=== PATIENT | male | born 1965 | race African-American/Black ===

== ENCOUNTER 2020-11-30 12:13 | Inpatient (IN) | payer SELFPAY ==
[~2020-11-30] VITALS: Ht 167.6 cm; Wt 42.2 kg
[2020-11-30] MEDS ORDERED: SODIUM CHLORIDE 0.9% 1000ML BAG (SEPSIS BOLUS) IV ONE (12:30)
[2020-11-30 12:54] LABS: BG BASE EXCESS -11.4 mmol/L (-2.0-2.0); BG CARBOXYHEMOGLOBIN 0.3 % (0.5-1.5); BG DEOXYHEMOGLOBIN 4.3 % (0.0-5.0); BG FRACTION INSPIRED OXYGEN 21; BG HCO3 ACT 12.8 mmol/L (22.0-26.0); BG METHEMOGLOBIN 0.4 % (0.0-1.5); BG OXYGEN SATURATION 95.7 % (92.0-98.5); BG PCO2 25.9 mmHg (35.0-45.0); BG PH 7.311 (7.350-7.450); BG PO2 94.1 mmHg (75.0-100.0); BG SAMPLE SITE RIGHT BRACHIAL; BG TOTAL HEMOGLOBIN 16.8 g/dL (12.0-18.0); BG VENT MODE ROOM AIR
[2020-11-30 14:00] LABS: HEMATOCRIT. 48.7 % (42.0-52.0); HEMOGLOBIN. 16.3 g/dL (14.0-18.0); MEAN CORPUSCULAR HEMOGLOBIN 30.4 pg (28.0-32.0); MEAN CORPUSCULAR VOLUME 91.1 fL (80.0-94.0); MEAN PLATELET VOLUME 9.1 fl (7.4-10.4); PLATELET 273 x1000/uL (130-400); RED BLOOD CELL COUNT 5.35 mill/uL (4.7-6.1); RED CELL DISTRIBUTION WIDTH 13.7 % (11.6-14.6)
[2020-11-30 14:01] LABS: CHLORIDE 101 mEq/L (98-107)
[2020-11-30 14:03] LABS: INR 1.2; PROTHROMBIN TIME 12.6 sec (9.6-11.0)
[2020-11-30 14:07] LABS: ETHANOL BLOOD < 10 mg/dL
[2020-11-30 14:09] LABS: C REACTIVE PROTEIN QUANT 6.4 mg/L (0.0-3.0)
[2020-11-30 14:25] LABS: CREATINE KINASE 5134 IU/L (39-308)
[2020-11-30] MEDS ORDERED: VANCOMYCIN 1 G PREMIX 200 ML IV SCH (14:30)
[2020-11-30] MEDS ORDERED: PIPERACILLIN/TAZOBACTAM 3.375GM/50ML PREMIX IV ONE (14:30)
[2020-11-30 14:45] LABS: CLARITY URINE CLOUDY (CLEAR); COLOR URINE YELLOW (YELLOW); KETONES URINE TRACE (NEGATIVE); LEUKOCYTE ESTERASE URINE 2+ (NEGATIVE); NITRITE URINE POSITIVE (NEGATIVE); OCCULT BLOOD URINE 3+ (NEGATIVE); PROTEIN URINE 2+ (NEGATIVE); SPECIFIC GRAVITY URINE 1.015 (1.005-1.030)
[2020-11-30 14:54] LABS: PLATELET ESTIMATE NORMAL
[2020-11-30 15:04] LABS: *AMPHETAMINES SCREEN URINE NEGATIVE (NEGATIVE); CANNABINOID URINE SCREEN NEGATIVE (NEGATIVE)
[2020-11-30 15:05] LABS: *BARBITURATES SCREEN URINE NEGATIVE (NEGATIVE); *BENZODIAZEPINES SCREEN URINE NEGATIVE (NEGATIVE); *COCAINE SCREEN URINE NEGATIVE (NEGATIVE); METHADONE URINE SCREEN NEGATIVE (NEGATIVE); OPIATES URINE SCREEN NEGATIVE (NEGATIVE); PHENCYCLIDINE URINE SCREEN NEGATIVE (NEGATIVE)
[2020-11-30] MEDS ORDERED: SODIUM CHLORIDE 0.9% 1,000 ML IV PRN (16:00)
[2020-11-30 18:13] LABS: BG BASE EXCESS -9.7 mmol/L (-2.0-2.0); BG CARBOXYHEMOGLOBIN 0.1 % (0.5-1.5); BG DEOXYHEMOGLOBIN 4.8 % (0.0-5.0); BG FRACTION INSPIRED OXYGEN 21; BG HCO3 ACT 15.1 mmol/L (22.0-26.0); BG METHEMOGLOBIN 0.3 % (0.0-1.5); BG OXYGEN SATURATION 95.2 % (92.0-98.5); BG OXYHEMOGLOBIN 94.8 % (94.0-97.0); BG PCO2 30.8 mmHg (35.0-45.0); BG PH 7.308 (7.350-7.450); BG PO2 87.1 mmHg (75.0-100.0); BG SAMPLE SITE RIGHT BRACHIAL; BG TOTAL HEMOGLOBIN 16.3 g/dL (12.0-18.0); BG VENT MODE ROOM AIR
[2020-11-30 19:36] LABS: CHLORIDE 110 mEq/L (98-107)
[2020-11-30] MEDS ORDERED: SODIUM CHLORIDE 0.9% 1,000 ML IV SCH (20:15)
[2020-11-30 20:20] LABS: CREATINE KINASE 6854 IU/L (39-308)
[2020-11-30] MEDS: LORAZEPAM 2MG/ML CPJ IV PRN (20:23)
[2020-11-30] MEDS: NICOTINE 14MG PATCH TD SCH (20:23)
[2020-11-30] MEDS ORDERED: PIPERACILLIN/TAZOBACTAM 3.375GM/50ML PREMIX IV SCH (20:30)
[2020-11-30 21:03] VITALS: BP 132/79
[2020-11-30] MEDS: PIPERACILLIN/TAZOBACTAM 2.25G in DEXTROSE 5% WATER 50ML IV SCH (22:57)
[2020-12-01] VITALS: BP 96/59
[2020-12-01] MEDS ORDERED: VANCOMYCIN 1 G PREMIX 200 ML IV SCH ×2 (02:30→17:00)
[2020-12-01 04:00] VITALS: BP 111/83
[2020-12-01] MEDS: PIPERACILLIN/TAZOBACTAM 2.25G in DEXTROSE 5% WATER 50ML IV SCH ×3 (05:29→21:51)
[2020-12-01 06:24] LABS: HEMATOCRIT. 50.7 % (42.0-52.0); HEMOGLOBIN. 16.7 g/dL (14.0-18.0); MEAN CORPUSCULAR HEMOGLOBIN 30.4 pg (28.0-32.0); MEAN CORPUSCULAR VOLUME 92.1 fL (80.0-94.0); MEAN PLATELET VOLUME 9.3 fl (7.4-10.4); PLATELET 214 x1000/uL (130-400)
[2020-12-01 06:53] LABS: CHLORIDE 117 mEq/L (98-107)
[2020-12-01 06:59] LABS: PHOSPHORUS 7.2 mg/dL (2.5-4.9)
[2020-12-01 07:17] LABS: CREATINE KINASE 6421 IU/L (39-308)
[2020-12-01 08:00] VITALS: BP 116/78
[2020-12-01] MEDS: NICOTINE 14MG PATCH TD SCH (09:41)
[2020-12-01 10:26] LABS: BG BASE EXCESS -7.4 mmol/L (-2.0-2.0); BG CARBOXYHEMOGLOBIN 0.3 % (0.5-1.5); BG DEOXYHEMOGLOBIN 5.7 % (0.0-5.0); BG FRACTION INSPIRED OXYGEN 21; BG HCO3 ACT 15.9 mmol/L (22.0-26.0); BG METHEMOGLOBIN 0.1 % (0.0-1.5); BG OXYGEN SATURATION 94.3 % (92.0-98.5); BG OXYHEMOGLOBIN 93.9 % (94.0-97.0); BG PCO2 27.9 mmHg (35.0-45.0); BG PH 7.374 (7.350-7.450); BG PO2 76.7 mmHg (75.0-100.0); BG SAMPLE SITE LEFT BRACHIAL; BG TOTAL HEMOGLOBIN 16.9 g/dL (12.0-18.0); BG VENT MODE ROOM AIR
[2020-12-01 12:00] VITALS: BP 111/79
[2020-12-01] MEDS: SODIUM CHLORIDE 0.45% 1,000 ML IV SCH ×2 (12:11→16:22)
[2020-12-01 16:00] VITALS: BP 108/78
[2020-12-01 20:00] VITALS: BP 129/91
[2020-12-01] MEDS: DEXTROSE 5% WATER 1,000 ML IV SCH (22:00)
[2020-12-01 22:41] LABS: PLATELET ESTIMATE NORMAL
[2020-12-02] VITALS: BP 125/57
[2020-12-02 00:45] LABS: CHLORIDE 122 mEq/L (98-107)
[2020-12-02] MEDS ORDERED: VANCOMYCIN 500 MG PREMIX 100 ML IV SCH ×2 (03:00→16:00)
[2020-12-02 04:00] VITALS: BP 140/96
[2020-12-02] MEDS: PIPERACILLIN/TAZOBACTAM 2.25G in DEXTROSE 5% WATER 50ML IV SCH ×2 (05:11→16:17)
[2020-12-02] MEDS: LORAZEPAM 2MG/ML CPJ IV PRN ×2 (05:33→23:55)
[2020-12-02] MEDS: DEXTROSE 5% WATER 1,000 ML IV SCH ×3 (06:22→21:04)
[2020-12-02 08:00] VITALS: BP 128/90
[2020-12-02] MEDS: NICOTINE 14MG PATCH TD SCH (08:39)
[2020-12-02 11:14] LABS: PHOSPHORUS 2.7 mg/dL (2.5-4.9)
[2020-12-02 12:00] VITALS: BP 116/86
[2020-12-02 12:28] LABS: HEMATOCRIT. 42.9 % (42.0-52.0); HEMOGLOBIN. 14.5 g/dL (14.0-18.0); MEAN CORPUSCULAR HEMOGLOBIN 30.8 pg (28.0-32.0); MEAN CORPUSCULAR VOLUME 91.4 fL (80.0-94.0); MEAN PLATELET VOLUME 9.7 fl (7.4-10.4); PLATELET 153 x1000/uL (130-400); RED CELL DISTRIBUTION WIDTH 13.9 % (11.6-14.6)
[2020-12-02 13:33] LABS: PLATELET ESTIMATE NORMAL
[2020-12-02] MEDS ORDERED: AMPICILLIN 2,000 MG in SODIUM CHLORIDE 0.9% 100 ML IV SCH (18:30)
[2020-12-02 20:00] VITALS: BP 107/79
[2020-12-02] MEDS: AMPICILLIN 2000MG in SODIUM CHLORIDE 0.9% 100ML IV SCH (21:04)
[2020-12-02 23:17] LABS: CHLORIDE 126 mEq/L (98-107)
[2020-12-02 23:39] LABS: CREATINE KINASE 3641 IU/L (39-308)
[2020-12-03] VITALS: BP 99/70
[2020-12-03] MEDS: AMPICILLIN 2000MG in SODIUM CHLORIDE 0.9% 100ML IV SCH ×3 (03:20→17:46)
[2020-12-03 04:00] VITALS: BP 130/88
[2020-12-03] MEDS: DEXTROSE 5% WATER 1,000 ML IV SCH ×4 (04:03→16:50)
[2020-12-03] MEDS: LORAZEPAM 2MG/ML CPJ IV PRN ×5 (04:13→21:44)
[2020-12-03 07:32] LABS: CHLORIDE 122 mEq/L (98-107)
[2020-12-03 07:42] LABS: HEMATOCRIT. 41.7 % (42.0-52.0); HEMOGLOBIN. 13.8 g/dL (14.0-18.0); MEAN CORPUSCULAR HEMOGLOBIN 30.7 pg (28.0-32.0); MEAN CORPUSCULAR VOLUME 93.1 fL (80.0-94.0); MEAN PLATELET VOLUME 9.7 fl (7.4-10.4); PLATELET 139 x1000/uL (130-400); RED BLOOD CELL COUNT 4.48 mill/uL (4.7-6.1); RED CELL DISTRIBUTION WIDTH 13.9 % (11.6-14.6)
[2020-12-03 08:00] VITALS: BP 118/86
[2020-12-03 08:20] LABS: CREATINE KINASE > 1000 IU/L (39-308)
[2020-12-03 08:47] LABS: CREATINE KINASE 4118 IU/L (39-308)
[2020-12-03] MEDS: NICOTINE 14MG PATCH TD SCH (09:00)
[2020-12-03 15:54] LABS: CHLORIDE 119 mEq/L (98-107)
[2020-12-03 16:15] LABS: CREATINE KINASE 3361 IU/L (39-308)
[2020-12-03 16:30] LABS: PLATELET ESTIMATE NORMAL
[2020-12-03 20:00] VITALS: BP 125/86
[2020-12-03 20:42] LABS: CHLORIDE 120 mEq/L (98-107)
[2020-12-03 21:02] LABS: CREATINE KINASE 2934 IU/L (39-308)
[2020-12-04] VITALS: BP 111/77
[2020-12-04 00:50] LABS: CHLORIDE 119 mEq/L (98-107)
[2020-12-04 01:12] LABS: CREATINE KINASE 2110 IU/L (39-308)
[2020-12-04] MEDS: AMPICILLIN 2000MG in SODIUM CHLORIDE 0.9% 100ML IV SCH ×3 (01:59→10:02)
[2020-12-04] MEDS: DEXTROSE 5% WATER 1,000 ML IV SCH ×6 (01:59→22:03)
[2020-12-04 04:00] VITALS: BP 113/80
[2020-12-04] MEDS: LORAZEPAM 2MG/ML CPJ IV PRN ×4 (04:41→23:34)
[2020-12-04 08:14] LABS: HEMATOCRIT. 38.8 % (42.0-52.0); HEMOGLOBIN. 12.7 g/dL (14.0-18.0); MEAN CORPUSCULAR HEMOGLOBIN 30.6 pg (28.0-32.0); MEAN CORPUSCULAR VOLUME 93.6 fL (80.0-94.0); MEAN PLATELET VOLUME 9.6 fl (7.4-10.4); PLATELET 133 x1000/uL (130-400); RED BLOOD CELL COUNT 4.15 mill/uL (4.7-6.1); RED CELL DISTRIBUTION WIDTH 13.9 % (11.6-14.6)
[2020-12-04 08:26] LABS: CHLORIDE 117 mEq/L (98-107)
[2020-12-04 08:32] LABS: PHOSPHORUS 2.3 mg/dL (2.5-4.9)
[2020-12-04 08:41] VITALS: BP 130/83
[2020-12-04 09:57] LABS: PLATELET ESTIMATE NORMAL
[2020-12-04] MEDS: NICOTINE 14MG PATCH TD SCH (10:03)
[2020-12-04 12:33] VITALS: BP 125/78
[2020-12-04 16:29] VITALS: BP 129/82
[2020-12-04 20:00] VITALS: BP 111/62
[2020-12-05] VITALS: BP 111/36
[2020-12-05] MEDS: AMPICILLIN 2000MG in SODIUM CHLORIDE 0.9% 100ML IV SCH ×3 (01:57→17:15)
[2020-12-05] MEDS: DEXTROSE 5% WATER 1,000 ML IV SCH ×2 (03:31→20:04)
[2020-12-05 04:00] VITALS: BP_SYST 108; BP_DIAS 61; BP_DIAS 64
[2020-12-05 07:24] LABS: HEMATOCRIT. 36.4 % (42.0-52.0); HEMOGLOBIN. 12.2 g/dL (14.0-18.0); LYMPHOCYTES % 8.5 % (20.0-50.0); MEAN CORPUSCULAR VOLUME 92.4 fL (80.0-94.0); MEAN PLATELET VOLUME 9.2 fl (7.4-10.4); MONOCYTES % 4.5 % (2.0-8.0); PLATELET 130 x1000/uL (130-400); RED BLOOD CELL COUNT 3.94 mill/uL (4.7-6.1); RED CELL DISTRIBUTION WIDTH 13.7 % (11.6-14.6)
[2020-12-05] MEDS: NICOTINE 14MG PATCH TD SCH (08:35)
[2020-12-05 08:47] LABS: CHLORIDE 109 mEq/L (98-107)
[2020-12-05 09:55] LABS: CREATINE KINASE 1076 IU/L (39-308)
[2020-12-05] MEDS: POTASSIUM PHOS,M-BASIC-D-BASIC 15 MMOL in DEXT 5% WATER 245 ML IV NR ×2 (10:30→19:58)
[2020-12-05] MEDS: FOLIC ACID 1MG TABLET NG SCH (17:14)
[2020-12-05] MEDS: THIAMINE HCL 100MG TABLET NG SCH (17:15)
[2020-12-05 18:03] LABS: HEPATITIS B SURFACE AB 814.2 mIU/mL
[2020-12-05 18:09] LABS: FOLIC ACID (FOLATE) SERUM 5.4 ng/mL (>5.38)
[2020-12-05 18:14] LABS: HEPATITIS B SURFACE ANTIGEN NEGATIVE
[2020-12-05 18:44] LABS: HEPATITIS A AB IGM NEGATIVE (NEGATIVE)
[2020-12-05 20:00] VITALS: BP 121/82
[2020-12-06] VITALS: BP 118/82
[2020-12-06] MEDS: DEXTROSE 5% WATER 1,000 ML IV SCH ×3 (00:10→21:57)
[2020-12-06] MEDS: AMPICILLIN 2000MG in SODIUM CHLORIDE 0.9% 100ML IV SCH ×3 (01:48→17:16)
[2020-12-06 04:00] VITALS: BP 114/84
[2020-12-06 07:33] LABS: HEMATOCRIT. 37.9 % (42.0-52.0); HEMOGLOBIN. 12.5 g/dL (14.0-18.0); MEAN CORPUSCULAR HEMOGLOBIN 30.4 pg (28.0-32.0); MEAN CORPUSCULAR VOLUME 91.9 fL (80.0-94.0); MEAN PLATELET VOLUME 9.5 fl (7.4-10.4); PLATELET 148 x1000/uL (130-400); RED BLOOD CELL COUNT 4.12 mill/uL (4.7-6.1); RED CELL DISTRIBUTION WIDTH 13.4 % (11.6-14.6)
[2020-12-06 07:36] LABS: CHLORIDE 106 mEq/L (98-107)
[2020-12-06 07:44] LABS: PHOSPHORUS 2.5 mg/dL (2.5-4.9)
[2020-12-06 07:45] LABS: CREATINE KINASE 568 IU/L (39-308)
[2020-12-06 08:00] VITALS: BP 122/77
[2020-12-06] MEDS: FOLIC ACID 1MG TABLET NG SCH (08:23)
[2020-12-06] MEDS: THIAMINE HCL 100MG TABLET NG SCH (08:23)
[2020-12-06] MEDS: NICOTINE 14MG PATCH TD SCH (08:24)
[2020-12-06 11:13] LABS: PLATELET ESTIMATE NORMAL
[2020-12-06 12:00] VITALS: BP 114/83
[2020-12-06] MEDS ORDERED: HALOPERIDOL 0.5MG TABLET PO PRN (13:15)
[2020-12-06] MEDS: HALOPERIDOL LACTATE 5MG/ML VIAL IM PRN (15:33)
[2020-12-06 16:00] VITALS: BP 102/70
[2020-12-06 16:08] LABS: CLARITY URINE CLEAR (CLEAR); COLOR URINE YELLOW (YELLOW); KETONES URINE NEGATIVE (NEGATIVE); LEUKOCYTE ESTERASE URINE NEGATIVE (NEGATIVE); NITRITE URINE NEGATIVE (NEGATIVE); OCCULT BLOOD URINE TRACE (NEGATIVE); PROTEIN URINE NEGATIVE (NEGATIVE); SPECIFIC GRAVITY URINE 1.011 (1.005-1.030)
[2020-12-06 20:00] VITALS: BP 115/78
[2020-12-07] VITALS: BP 114/87
[2020-12-07] MEDS: AMPICILLIN 2000MG in SODIUM CHLORIDE 0.9% 100ML IV SCH ×3 (01:45→17:30)
[2020-12-07 04:00] VITALS: BP 119/81
[2020-12-07] MEDS: DEXTROSE 5% WATER 1,000 ML IV SCH ×2 (05:54→16:28)
[2020-12-07 08:00] VITALS: BP 100/68
[2020-12-07] MEDS: NICOTINE 14MG PATCH TD SCH (09:23)
[2020-12-07] MEDS: FOLIC ACID 1MG TABLET NG SCH (09:23)
[2020-12-07] MEDS: THIAMINE HCL 100MG TABLET NG SCH (09:23)
[2020-12-07 10:03] LABS: HEMATOCRIT. 36.3 % (42.0-52.0); HEMOGLOBIN. 12.2 g/dL (14.0-18.0); MEAN CORPUSCULAR HEMOGLOBIN 30.7 pg (28.0-32.0); MEAN CORPUSCULAR VOLUME 91.7 fL (80.0-94.0); MEAN PLATELET VOLUME 9.7 fl (7.4-10.4); PLATELET 150 x1000/uL (130-400); RED BLOOD CELL COUNT 3.96 mill/uL (4.7-6.1); RED CELL DISTRIBUTION WIDTH 13.3 % (11.6-14.6)
[2020-12-07 10:09] LABS: CHLORIDE 103 mEq/L (98-107)
[2020-12-07 10:14] LABS: PHOSPHORUS 2.1 mg/dL (2.5-4.9)
[2020-12-07 11:05] LABS: PLATELET ESTIMATE NORMAL
[2020-12-07 12:00] VITALS: BP 96/66
[2020-12-07 16:00] VITALS: BP 100/70
[2020-12-07 20:00] VITALS: BP 118/78
[2020-12-07] MEDS ORDERED: SODIUM PHOS,M-BASIC-D-BASIC 15 MM in DEXT 5% WATER 245 ML IV NR (22:00)
[2020-12-07] MEDS ORDERED: POTASSIUM CHLORIDE INJ 40 MEQ in DEXT 5% WATER 500 ML IV NR (22:00)
[2020-12-07] MEDS ORDERED: MAGNESIUM 2 G PREMIX 50 ML IV NR (22:00)
[2020-12-08] VITALS: BP 113/80
[2020-12-08 04:00] VITALS: BP 100/71
[2020-12-08 07:28] LABS: HEMATOCRIT. 36.3 % (42.0-52.0); HEMOGLOBIN. 12.3 g/dL (14.0-18.0); MEAN CORPUSCULAR HEMOGLOBIN 30.8 pg (28.0-32.0); MEAN CORPUSCULAR VOLUME 90.6 fL (80.0-94.0); MEAN PLATELET VOLUME 9.4 fl (7.4-10.4); PLATELET 204 x1000/uL (130-400); RED BLOOD CELL COUNT 4.01 mill/uL (4.7-6.1); RED CELL DISTRIBUTION WIDTH 13.5 % (11.6-14.6)
[2020-12-08 07:56] LABS: CHLORIDE 103 mEq/L (98-107)
[2020-12-08 08:00] VITALS: BP 107/71
[2020-12-08 08:06] LABS: PHOSPHORUS 2.9 mg/dL (2.5-4.9)
[2020-12-08 08:08] LABS: CREATINE KINASE 180 IU/L (39-308)
[2020-12-08] MEDS: NICOTINE 7MG PATCH TOP SCH (09:52)
[2020-12-08] MEDS: THIAMINE HCL 100MG TABLET NG SCH (09:52)
[2020-12-08] MEDS: FOLIC ACID 1MG TABLET NG SCH (09:52)
[2020-12-08 12:00] VITALS: BP 107/71
[2020-12-08 16:00] VITALS: BP 107/71
[2020-12-08 20:00] VITALS: BP 111/78
[2020-12-08 21:49] LABS: PLATELET ESTIMATE NORMAL
[2020-12-09] VITALS: BP 111/74
[2020-12-09 04:00] VITALS: BP 102/67
[2020-12-09 08:00] VITALS: BP 100/67
[2020-12-09] MEDS: FOLIC ACID 1MG TABLET NG SCH (10:20)
[2020-12-09] MEDS: THIAMINE HCL 100MG TABLET NG SCH (10:20)
[2020-12-09] MEDS: NICOTINE 7MG PATCH TOP SCH (10:22)
[2020-12-09 10:29] LABS: HEMATOCRIT. 35.1 % (42.0-52.0); HEMOGLOBIN. 11.6 g/dL (14.0-18.0); MEAN CORPUSCULAR HEMOGLOBIN 30.4 pg (28.0-32.0); MEAN CORPUSCULAR VOLUME 91.7 fL (80.0-94.0); MEAN PLATELET VOLUME 8.9 fl (7.4-10.4); PLATELET 205 x1000/uL (130-400); RED BLOOD CELL COUNT 3.83 mill/uL (4.7-6.1); RED CELL DISTRIBUTION WIDTH 13.4 % (11.6-14.6)
[2020-12-09 10:37] LABS: CHLORIDE 104 mEq/L (98-107)
[2020-12-09 10:45] LABS: PHOSPHORUS 2.1 mg/dL (2.5-4.9)
[2020-12-09 12:00] VITALS: BP 100/66
[2020-12-09] MEDS: HALOPERIDOL LACTATE 5MG/ML VIAL IM PRN (15:05)
[2020-12-09 16:00] VITALS: BP 119/75
[2020-12-09 18:36] LABS: PLATELET ESTIMATE NORMAL
[2020-12-09 20:00] VITALS: BP 119/71
[2020-12-10] VITALS: BP 131/78
[2020-12-10 04:00] VITALS: BP 108/82
[2020-12-10 07:30] LABS: CHLORIDE 104 mEq/L (98-107)
[2020-12-10 07:42] LABS: BASOPHILS % 0.1 % (0.0-2.0); EOSINOPHILS % 0.4 % (0.0-5.0); HEMOGLOBIN. 11.5 g/dL (14.0-18.0); LYMPHOCYTES % 8.8 % (20.0-50.0); MEAN CORPUSCULAR VOLUME 92.1 fL (80.0-94.0); MEAN PLATELET VOLUME 8.7 fl (7.4-10.4); MONOCYTES % 6.2 % (2.0-8.0); NEUTROPHILS % 84.5 % (40.0-76.0); PLATELET 245 x1000/uL (130-400); RED BLOOD CELL COUNT 3.69 mill/uL (4.7-6.1); RED CELL DISTRIBUTION WIDTH 13.6 % (11.6-14.6)
[2020-12-10 07:43] LABS: PHOSPHORUS 2.7 mg/dL (2.5-4.9)
[2020-12-10 08:00] VITALS: BP 91/65
[2020-12-10] MEDS: THIAMINE HCL 100MG TABLET NG SCH (09:58)
[2020-12-10] MEDS: NICOTINE 7MG PATCH TOP SCH (09:58)
[2020-12-10] MEDS: FOLIC ACID 1MG TABLET NG SCH (09:58)
[2020-12-10] MEDS ORDERED: LACTULOSE 20G/30ML UDC PO PRN (11:30)
[2020-12-10 12:00] VITALS: BP 82/54
[2020-12-10 16:00] VITALS: BP 79/60
[2020-12-10] MEDS ORDERED: SODIUM CHLORIDE 0.9% 1,000 ML IV ONE (17:15)
[2020-12-10 20:00] VITALS: BP 105/58
[2020-12-11] MEDS ORDERED: METOCLOPRAMIDE HCL 10MG/2ML VIAL IV SCH
[2020-12-11 00:28] VITALS: BP 105/25
[2020-12-11 01:17] VITALS: BP 49/23
[2020-12-11] MEDS ORDERED: NOREPINEPHRINE 32 MG in DEXT 5% WATER 218 ML IV PRN (02:00)
[2020-12-11] MEDS ORDERED: PHENYLEPHRINE 100 MG in DEXT 5% WATER 240 ML IV PRN (02:00)
[2020-12-11] MEDS ORDERED: SODIUM BICARBONATE 8.4% 1 MEQ/ML 50ML SYR IV ONE (08:22)
[2020-12-11] MEDS ORDERED: EPINEPHRINE 0.1MG/ML (1:10,000) 10ML SYR ONE (08:22)
[2020-12-11] MEDS ORDERED: DEXTROSE 50% WATER 50ML SYRINGE IV ONE (08:22)
[2020-12-11] MEDS ORDERED: VECURONIUM BROMIDE 10 MG/VIAL IV ONE (10:03)
[2020-12-11] MEDS ORDERED: ETOMIDATE 2MG/ML 10ML VIAL IV ONE (10:03)
[2020-12-11] MEDS ORDERED: SODIUM CHLORIDE 0.9% 10ML VIAL ONE (10:03)
[2020-12-11] MEDS ORDERED: SUCCINYLCHOLINE CHLORIDE 200MG/10ML IV ONE (10:03)
== END 2020-12-11 01:18 | DRG 720 ==
LOC: ER 12:21 → MICUSO 15:22 → EDBEDREQ 15:27 → EDBEDREQSVC 16:09 → SUPCPDRO 16:49 → 8WST 19:27 → MICUNO 12-11 00:27
PROVIDERS: ADMIT Internal Medicine; ATTEND Internal Medicine
PROC: 5A12012 Performance of Cardiac Output, Single, Manual (ICD-10-PCS; principal; 2020-11-30)
PROC: 06HY33Z Insertion of Infusion Device into Lower Vein, Percutaneous Approach (ICD-10-PCS; 2020-11-30)
PROC: 4A10X4Z Monitoring of Central Nervous Electrical Activity, External Approach (ICD-10-PCS; 2020-11-30)
PROC: B54CZZA Ultrasonography of Left Lower Extremity Veins, Guidance (ICD-10-PCS; 2020-11-30)
PROC: 5A1935Z Respiratory Ventilation, Less than 24 Consecutive Hours (ICD-10-PCS; 2020-12-10)
PROC: 0BH17EZ Insertion of Endotracheal Airway into Trachea, Via Natural or Artificial Opening (ICD-10-PCS; 2020-12-10)
DX: A41.9 Sepsis, unspecified organism (principal); I46.9 Cardiac arrest, cause unspecified; G93.41 Metabolic encephalopathy; E46 Unspecified protein-calorie malnutrition; E87.2 Acidosis; M62.82 Rhabdomyolysis; E87.0 Hyperosmolality and hypernatremia; N39.0 Urinary tract infection, site not specified; B96.20 Unspecified Escherichia coli [E. coli] as the cause of diseases classified elsewhere; S39.92XA Unspecified injury of lower back, initial encounter; K76.9 Liver disease, unspecified; N17.9 Acute kidney failure, unspecified; Z20.822 Contact with and (suspected) exposure to COVID-19; J44.9 Chronic obstructive pulmonary disease, unspecified; Z78.1 Physical restraint status; S79.912A Unspecified injury of left hip, initial encounter; S79.911A Unspecified injury of right hip, initial encounter; S89.91XA Unspecified injury of right lower leg, initial encounter; X58.XXXA Exposure to other specified factors, initial encounter; Y93.89 Activity, other specified; Y92.89 Other specified places as the place of occurrence of the external cause; Y99.8 Other external cause status; Z68.1 Body mass index [BMI] 19.9 or less, adult
CPT/HCPCS: 31500; 36415; 36600; 71045; 74176; 76700; 80048; 80053; 80202; 80305; 80307; 80320; 80329; 81003; 82140; 82375; 82550; 82607; 82728; 82746; 82805; 82962; 83605; 83615; 83735; 83880; 84100; 84145; 84443; 84484; 85025; 85384; 86140; 86592; 86705; 86706; 86709; 86803; 86850; 86900; 87077; 87186; 87340; 87426; 92950; 93005; 94002; 95816; 99291; J0290; J0330; J1630; J2060; J2543; J3370; J3475; J3480; J3490; J7030; J7040; J7042; J7050; J7060; J7070; A4315; G0480